=== PATIENT | male | born 1955 | race Caucasian/White ===

== ENCOUNTER 2020-06-16 17:37 | Emergency (ER) | payer BC, SELFPAY ==
--- NOTE | ~2020-06-16 | XR_ITS ---
EXAMINATION: XR wrist RT min 3V DATE: 06/16/2020 17:47 INDICATION: Radial sided right wrist pain post fall TECHNIQUE: Posteroanterior, ulnar deviation, oblique, and lateral views of the right wrist were obtai jessica. COMPARISON: none FINDINGS: Alignment is normal. No fracture. Joint spaces are normal. Soft tissue swelling over the dorsum of th e carpus IMPRESSION: 1. No osseous abnormality. Reviewed, dictated and finalized at [facility]. IMPRESSION: 1. No osseous abnormality.
--- NOTE | 2020-06-16 17:45 | ED.UPPEXIN ---
HPI - Extremity Injury (Upper) General Chief Complaint: Extremity Injury, Upper Stated Complaint: rt wrist injury Time Seen by Provider: 06/16/20 17:47 Source: patient and RN notes reviewed Mode of arrival: ambulatory Limitations: no limitations History of Present Illness HPI narrative: 64-year-old male presents with concern for right wrist injury. Reports he fell yesterday catching himself on his right hand. Reports immediate pain to the wrist. Reports dorsal swelling and tenderness. Denies elbow pain, digit pain. Reports he has been using a brace. MD complaint: injury to: right and wrist Related Data Home Medications Medication Instructions Recorded Confirmed No Home Medications 09/29/19 09/29/19 Allergies Allergy/AdvReac Type Severity Reaction Status Date / Time No Known Allergies Allergy Unknown Unverified 07/30/19 18:51 No Known Allergies Allergy Uncoded 07/30/19 18:51 Review of Systems Review of Systems: Narrative: CONSTITUTIONAL: Denies malaise, chills, sweats, or fever. CARDIOVASCULAR: Denies chest pain, palpitations RESPIRATORY: Denies dyspnea. SKIN: Reports right wrist redness MUSCULOSKELETAL: Reports right wrist pain and swelling NEUROLOGIC: Denies numbness, weakness All systems reviewed & are unremarkable except as noted in HPI and below PMFSH Past Medical History Medical History (Updated 06/16/20 @ 18:09 by Sruthi Naylor NP) Actinic keratosis 2013 Femur fracture 2016 Hypogonadism Torn meniscus 2000 Surgical History Surgical History History of medial meniscus repair of right knee 2000 Social History Social History Smoking status: Never smoker Comments At time of signature, agree with nursing past medical, surgical, social and family history. There is no relevant family history pertinent to the presenting complaint Exam Narrative: Exam Narrative: GENERAL: Well-appearing, well-nourished, and in no acute distress. HEAD: Normocephalic EYES: PERRLA, conjunctivae clear NECK: Supple. CHEST: Speaks in full sentences. No respiratory distress. HEART: Regular rate and rhythm. Normal and equal peripheral pulses. EXTREMITIES: Right wrist, hand, and digits of hand have normal strength and sensation. Dorsal wrist edema and erythema beneath the first digit of the right hand. 5/5 strength with digit flexion, extension. Range of motion normal. No clubbing, cyanosis, or edema noted. No tenderness. Skin intact. Normal digital cascade with flexion of fingers, median, ulnar and radial nerve intact. Normal sensation of each side of finger. Can perform 'okay' sign, 'cross over finger test of index and middle fingers' and 'thumbs up' sign. No scissoring. Normal thumb opposition. Good capillary refill and radial pulse. Distal capillary refill <3 seconds. SKIN: Warn, dry, intact, pink. No rash NEURO: Alert and oriented x3. PSYCH: Normal mood and affect Course Course Emergency Course: Patient is aware of diagnosis, understands and agrees to treatment plan. Anticipatory guidance given. Patient agrees to follow-up as directed and is aware of reasons to seek care at the emergency department. Portions of this record may have been created with voice recognition software Reevaluation(s) Reevaluation #1: While waiting on x-ray results, patient reports that he has a family situation and needs to leave, cannot wait for x-ray results. Explained to patient that if he has a fracture he will be unable to have a OCL applied. Patient states understanding, patient is currently wearing a supportive brace. Patient will be called with x-ray results and referred to Minda Almaguer. Date: 06/16/20 Time: 18:10 Vital Signs Vital signs: Vital Signs Temperature 97.6 F 06/16/20 17:46 Pulse Rate 61 06/16/20 17:46 Respiratory Rate 16 06/16/20 17:46 Blood Pressure 124/76 06/16/20 17:46 Pulse Oximetry 100
[2020-06-16 17:46] VITALS: BP 124/76; PULSE 61; RESP 16; TEMP 36.4; O2SAT 100
== END 2020-06-16 18:13 | disposition home or self-care (01) ==
PROVIDERS: Emergency Provider Nurse Practitioner
DX: S69.91XA Unspecified injury of right wrist, hand and finger(s), initial encounter (principal); W19.XXXA Unspecified fall, initial encounter
CPT/HCPCS: 73110; 99213; G0463

== ENCOUNTER 2021-04-26 11:10 | Emergency (ER) | payer BC, SELFPAY ==
[2021-04-26 11:17] VITALS: BP 130/63; PULSE 54; RESP 12; TEMP 36.8; O2SAT 99
--- NOTE | 2021-04-26 11:25 | ED.SKABFB ---
HPI - Skin/Abscess/Foreign Bdy General Chief complaint: Skin/Abscess/Foreign Body Stated complaint: rash Time Seen by Provider: 04/26/21 11:29 Source: patient and RN notes reviewed Mode of arrival: ambulatory Limitations: no limitations History of Present Illness HPI narrative: 65-year-old male presents to the [facility] with a rash to his genitals. Patient states that he was urinating on poison sumac the other day. Is declining running this provider see his rash. Patient states that he would like some prednisone. Has a bike ride tomorrow and would like to be able to ride. Related Data Allergies Allergy/AdvReac Type Severity Reaction Status Date / Time No Known Allergies Allergy Unknown Verified 04/26/21 12:11 No Known Allergies Allergy Other Uncoded 04/26/21 12:11 Review of Systems Review of Systems: All systems reviewed & are unremarkable except as noted in HPI and below Constitutional: Constitutional: Reports no additional constitutional complaints, Denies chills and Denies fever(s) Eyes: Eyes: Reports no additional eye complaints Cardiovascular: Cardiovascular: Reports no additional cardiovascular complaints Respiratory: Respiratory: Reports no additional respiratory complaints, Denies cough and Denies dyspnea Gastrointestinal: Gastrointestinal: Reports no additional gastrointestinal complaints Genitourinary: Genitourinary: Reports as per HPI Comments: Rash Musculoskeletal: Musculoskeletal: Reports no additional musculoskeletal complaints Integumentary/Breasts: Skin/Breast: Reports as per HPI and Reports rash Neurologic: Reports system reviewed and no additional complaints, except as documented Psychiatric: Psychiatric: Reports no additional psychiatric complaints Allergic/Immunologic: Allergic/Immunologic: Reports no additional allergic/immunologic complaints [facility] Past Medical History Medical History (Updated 04/26/21 @ 11:36 by Sruthi Ruvalcaba) Actinic keratosis 2013 Femur fracture 2016 Hypogonadism Torn meniscus 2000 Surgical History Surgical History History of medial meniscus repair of right knee 2000 Social History Social History Smoking status: Never smoker Comments At the time of my signature, I reviewed and agree with the nursing past medical, surgical, social, and family history. There is no relevant family history pertinent to the patient complaint. Exam Const: General: healthy appearing, no acute distress and alert Nutritional Appearance: well nourished Orientation/consciousness: patient oriented x3 Limitations: no limitations HENMT: Head: normal to inspection Neck: Neck: normal visual inspection Chest: Chest palpation & inspection: normal inspection of the chest Resp: Effort & Inspection: normal respiratory effort and no use of accessory muscles Auscultation: clear to auscultation bilaterally, no crackles, no rales, no rhonchi and no wheezes Cardio: Rate: regular rate Rhythm: regular rhythm Skin: General skin exam: normal color Other: 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 States my genitals and I had urinated on poison sumac. I have had it before Neuro: General: patient oriented x3, moves all extremities, no meningeal signs and no focal motor deficits Speech: normal speech Gait exam (Neuro): Normal gait present Extrem: General: normal to inspection Psych: Appearance: grossly normal and well kempt Mental Status: mental status grossly normal Affect: normal affect Thought content: Yes Normal thought content present Course Course Emergency Course: Discharge instructions reviewed with patient, as well as provided in writing per nursing staff. The instructions also include specific and strict return/GO TO THE ER as well as f/u information. All questions have been answered, and the patient deny any further questions with discharge and discharge plan.
== END 2021-04-26 11:45 | disposition home or self-care (01) ==
PROVIDERS: Emergency Provider Nurse Practitioner
DX: L25.5 Unspecified contact dermatitis due to plants, except food (principal)
CPT/HCPCS: 99213; G0463

== ENCOUNTER 2022-05-15 08:24 | Outpatient (CLI) | payer BC, SELFPAY ==
--- NOTE | ~2022-05-15 | US_ITS ---
US abdomen complete EXAMINATION: US Abdomen Complete INDICATION: Left lower quadrant abdominal pain PROCEDURE: Realtime High Resolution abdomen ultrasound. COMPARISON: No prior studies for comparison FINDINGS: Gallbladder within normal limits. No gallstones, pericholecystic fluid, gallbladder wall t hickening or biliary dilatation. Common bile duct measures 3 mm. Liver echotexture within normal limits without focal mass. Pancreas within normal limits. Pancreati c tail is obscured by bowel gas. Spleen is enlarged measuring 13.5 cm. Renal echotexture is within n ormal limits bilaterally without hydronephrosis, contour deforming mass or renal stone. Right kidney measures 12.3 cm. Left kidney measures 12 cm. Visualized aspects of the aorta and IVC are within normal limits. Portal vein is patent. No sonograph ic Youssef's sign indicated by the technologist. IMPRESSION: 1: Mild splenomegaly. Reviewed, dictated and finalized at [facility]. IMPRESSION: 1: Mild splenomegaly.
== END 2022-05-15 08:25 | disposition home or self-care (01) ==
PROVIDERS: PCP Internal Medicine; Visit Provider Nurse Practitioner
DX: R10.32 Left lower quadrant pain (principal); R10.31 Right lower quadrant pain; R16.0 Hepatomegaly, not elsewhere classified
CPT/HCPCS: 76700

== ENCOUNTER 2022-05-29 08:33 | Outpatient (CLI) | payer BC, SELFPAY ==
--- NOTE | ~2022-05-29 | CT_ITS ---
EXAMINATION: CT abdomen pelvis wo con DATE: 05/29/2022 09:03 INDICATION: Lower abdominal pain for a few weeks TECHNIQUE: Computed tomography (CT) of the abdomen and pelvis was performed without intravenous contr ast. Automated exposure control and iterative reconstruction technique were employed. Exam dose: 527 .01 mGy-cm total exam DLP. COMPARISON: 05/15/2022 complete abdominal ultrasound examination FINDINGS: The lung bases are clear. Normal heart size. No pericardial or pleural effusion. The liver, gallbladder, spleen, pancreas, and adrenal glands and kidneys are unremarkable on this harmon ited noncontrast examination. No bile duct or pancreatic duct dilatation. No urinary tract calculus or hydroureteronephrosis. There is mild prostate enlargement as well as pro state calcifications. The urinary bladder is unremarkable. The appendix was not visualized. No inflam matory changes noted in the right lower quadrant or elsewhere in the abdomen. Small fat-containing umbilical hernia. No inguinal hernia is demonstrated. No bowel obstruction, bowel wall thickening, pneumatosis or intraperitoneal free air. There is atherosclerotic calcification but normal caliber of the abdominal aorta. No intraperitoneal or retroperitoneal or pelvic mass lesion or adenopathy or ascites. Moderate degenerative disc disease at L4-5 and L5-S1. Compression screw and nail in the proximal left femur. IMPRESSION: Mild prostate enlargement and calcification Reviewed, dictated and finalized at [facility]. Reviewed, dictated and finalized at [facility].
== END 2022-05-29 08:34 | disposition home or self-care (01) ==
PROVIDERS: PCP Internal Medicine; Visit Provider Nurse Practitioner
DX: R10.32 Left lower quadrant pain (principal); R10.31 Right lower quadrant pain; M47.817 Spondylosis without myelopathy or radiculopathy, lumbosacral region; N40.0 Benign prostatic hyperplasia without lower urinary tract symptoms; K42.9 Umbilical hernia without obstruction or gangrene
CPT/HCPCS: 74176

== ENCOUNTER 2023-03-02 15:50 | Outpatient (CLI) | payer MEDICARE, OTHER, SELFPAY ==
[2023-03-02 18:41] LABS: Basophils Percent Auto 0.7 % (0.2-1.2); Eosinophils Absolute Auto 0.3 K/mm3 (0-0.3); Eosinophils Percent Auto 5.7 % (0-4.4); Hematocrit 43.3 % (42.0-52.0); Immature Granulocyte Absolute 0.02 K/mm3 (0.00-0.031); Immature Granulocyte Percent A 0.3 % (0-0.5); Lymphocytes Absolute Auto 1.78 K/mm3 (0.9-3.2); Lymphocytes Percent Auto 30.1 % (18.3-44.2); Mean Corpuscular HGB Conc 34.6 g/dl (32-36); Mean Corpuscular Hemoglobin 31.5 pg (26-34); Mean Platelet Volume 10.1 fl (7.4-10.4); Monocytes Absolute Auto 0.7 K/mm3 (0.1-0.6); Monocytes Percent Auto 11.1 % (2.6-8.5); Neutrophils Absolute Auto 3.1 K/mm3 (1.3-6.7); Neutrophils Percent Auto 52.1 % (45.5-73.1); Platelet Count Result 175 k/mm3 (150-375); Red Blood Count 4.76 M/mm3 (4.6-6.20); Red Cell Distribution Width 11.9 % (11.5-14.5); White Blood Count 5.9 K/mm3 (4.5-10.0)
[2023-03-02 18:56] LABS: Alanine Aminotransferase 25 U/L (6-50); Albumin Level 4.4 g/dL (3.5-5.1); Alkaline Phosphatase 82 U/L (38-126); Anion Gap 4 mmol/L (8-16); Aspartate Amino Transferase 45 U/L (17-59); Bilirubin,Total 0.6 mg/dL (0.2-1.3); Blood Urea Nitrogen 23 mg/dL (9-20); Calcium 9.5 mg/dL (8.4-10.2); Carbon Dioxide 29 mmol/L (22-30); Chloride 104 mmol/L (98-107); Cholesterol 183 mg/dL (0-200); Estimated Glomerular Filt Rate > 60; Glucose 102 mg/dL (65-110); HDL Direct 65 mg/dL; Potassium 4.4 mmol/L (3.4-5.0); Sodium 137 mmol/L (137-145); Triglycerides 181 mg/dL (<150)
[2023-03-02 19:07] LABS: LDL Cholesterol Direct 76 mg/dL
[2023-03-02 19:26] LABS: Prostate Specific Antigen 0.7 ng/mL (< OR = 4.0)
[2023-03-05 04:11] LABS: Prolactin 4.8 ng/mL (***)
[2023-03-06 15:50] LABS: Testosterone Free 58.2 pg/mL (35.0-155.0); Testosterone Total 425 ng/dL (250-1100)
== END 2023-03-02 15:51 | disposition home or self-care (01) ==
LOC: ANHGOSHLAB 15:53
PROVIDERS: PCP Internal Medicine; Visit Provider Internal Medicine
DX: R10.9 Unspecified abdominal pain (principal); E29.1 Testicular hypofunction; Z13.29 Encounter for screening for other suspected endocrine disorder; Z13.220 Encounter for screening for lipoid disorders; Z12.5 Encounter for screening for malignant neoplasm of prostate
CPT/HCPCS: 36415; 80053; 80061; 84146; 84153; 84402; 84403; 84443; 85025; G0103

== ENCOUNTER → 2023-04-14 08:14 | Outpatient (CLI) | payer MEDICARE, OTHER, SELFPAY ==
--- NOTE | ~2023-04-14 | CT_ITS ---
Clinical Indication: Solitary pulmonary nodule CT Scan of the Chest with Contrast: Technique: Contiguous sections were acquired throughout the chest after intravenous administration of 75 cc of Omnipaque 350. Dose reduction technique was used on this scan by utilizing automated exposu re control and iterative reconstruction technique. The dose-length product (DLP) was 364.37 mGy-cm. COMPARISON: 05/29/2022 Findings: There is no evidence of any significant mediastinal, hilar or axillary lymphadenopathy. There is no f illing defect in the pulmonary arterial tree to suggest pulmonary embolus. There is no evidence of ao rtic dissection or aneurysm. There is no evidence of pleural or pericardial effusion. Irregular nodularity in the medial right lower lobe in the infrahilar region is similar to prior exam . Mild biapical scarring noted. Images through the upper abdomen reveal no abnormalities. Impression: Small nodule in the right infrahilar region, stable since prior abdominal pelvic CT dated 05/29/2022. Reviewed, dictated and finalized at [facility]. Impression: Small nodule in the right infrahilar region, stable since prior abdominal pelvi c CT dated 05/29/2022.
[2023-04-14 08:35] LABS: Estimated Glomerular Filt Rate > 60
== END ==
PROVIDERS: PCP Internal Medicine; Visit Provider Internal Medicine
DX: R91.1 Solitary pulmonary nodule (principal)
CPT/HCPCS: 71260; Q9967

== ENCOUNTER 2023-06-18 00:49 | Day surgery (SDC) | payer MEDICARE, OTHER, SELFPAY ==
[2023-06-04 11:34] VITALS: BMI 23.9
--- NOTE | 2023-06-17 17:02 | PM.HPGS ---
History of Present Illness History of Present Illness Consent: Risks, benefits, and alternatives have been discussed and questions answered. Patient agrees to proceed with procedure. Chief complaint: neoplasm screening Narrative: Mark Woodward is a 68 year old male Referred for colon cancer screening. His last colonoscopy, 10 years ago was unremarkable. Review of Systems Review of Systems: All systems reviewed & are unremarkable except as noted in HPI and below PMFSH Past Medical History Medical History Actinic keratosis 2013 Femur fracture 2016 Hypogonadism Long-term current use of testosterone cypionate Torn meniscus 2000 Surgical History Surgical History History of appendectomy History of hip surgery ORIF femur fracture 2016 History of medial meniscus repair of right knee 2000 Partial meniscectomy Social History Social History Smoking status: Never smoker Alcohol intake: current Alcohol use details: 3-4/day Substance use: never Substance use type: does not use Lack of Transportation: YES Lack of Food: Never True Current Housing: I Have Housing Concerned About Future Housing: No Difficulty Paying Gas/Electric Bills: No Difficulty Paying for Meds: No Currently Unemployed: No Education: Decline to Answer Difficulty w/ Childcare or Family Care: No Living arrangements: with family Occupation/Education: retired Spiritual care concerns: No Meds Home Medications and Allergies Home Medications Medication Instructions Recorded Confirmed Type tadalafil 20 mg tablet 10 - 20 mg PO DAILY PRN sexual 03/02/23 06/04/23 Rx activity #30 tabs testosterone cypionate 200 mg/mL 140 mg (0.7 mL) IM WEEKLY #10 mL 03/15/23 06/04/23 Rx intramuscular oil (Depo-Testosterone) insulin syringe-needle U-100 1 mL #100 ea 06/05/23 Rx 25 x 1 (BD Insulin Syringe) safety needles 21 gauge x 1 #100 ea 06/05/23 Rx Allergies Allergy/AdvReac Type Severity Reaction Status Date / Time No Known Allergies Allergy Unknown Verified 06/18/23 06:17 Exam Const: General: alert Orientation/consciousness: patient oriented x3 Resp: Auscultation: clear to auscultation bilaterally Cardio: Rhythm: regular rhythm GI: GI Palp: Yes Soft to palpation and No Tenderness to palpation present (GI) Neuro: General: patient oriented x3 Assessment and Plan Assessment and plan (1) Colon cancer screening: Code(s): Z12.11 - Encounter for screening for malignant neoplasm of colon Status: Acute Assessment and Plan: Colonoscopy with possible biopsy or polypectomy or cautery or injection of substances.
[2023-06-18 06:19] VITALS: BP 109/73; PULSE 67; RESP 18; TEMP 36.2; O2SAT 99; BMI 22.9
[2023-06-18] MEDS: LACTATED RINGERS 1,000 ML 150 ML IV CONT ×2 (06:21→07:26)
--- NOTE | 2023-06-18 06:37 | P.PNAN_ITS ---
Anes - Initial Pre Proc Eval Procedure: Operation Date: 06/18/23 07:30 Proposed Procedures p Colonoscopy - Ramos Cullen MD Date/Time: 06/18/23 06:37 Surgeon: Ramos Cullen MD Pre Op Diagnosis: neoplasm screening Patient Data Age: 68 Gender: M Height: 1.98 m Weight: 90 kg Last Vital Signs Temp 36.2 C L 06/18/23 06:19 Pulse 67 06/18/23 06:19 Resp 18 06/18/23 06:19 BP 109/73 06/18/23 06:19 Pulse Ox 99 06/18/23 06:19 O2 Del Method Room Air 06/18/23 06:19 Allergies Allergy/AdvReac Type Severity Reaction Status Date / Time No Known Allergies Allergy Unknown Verified 06/18/23 06:17 Home Medications Medication Instructions Recorded Confirmed Type tadalafil 20 mg tablet 10 - 20 mg PO DAILY PRN sexual 03/02/23 06/04/23 Rx activity #30 tabs testosterone cypionate 200 mg/mL 140 mg (0.7 mL) IM WEEKLY #10 mL 03/15/23 06/04/23 Rx intramuscular oil (Depo-Testosterone) insulin syringe-needle U-100 1 mL #100 ea 06/05/23 Rx 25 x 1 (BD Insulin Syringe) safety needles 21 gauge x 1 #100 ea 06/05/23 Rx Patient hx anesthesia problems: none Family hx anesthesia problems: none Results Review: All pre-operative results and documents have been reviewed as part of the pre- operative evaluation. [facility] Past Medical History Medical History Actinic keratosis 2013 Femur fracture 2016 Hypogonadism Long-term current use of testosterone cypionate Torn meniscus 2000 Surgical History Surgical History History of appendectomy History of hip surgery ORIF femur fracture 2017 History of medial meniscus repair of right knee 2001 Partial meniscectomy Social History Social History Smoking status: Never smoker Alcohol intake: current Alcohol use details: 3-4/day Substance use: never Substance use type: does not use Lack of Transportation: YES Lack of Food: Never True Current Housing: I Have Housing Concerned About Future Housing: No Difficulty Paying Gas/Electric Bills: No Difficulty Paying for Meds: No Currently Unemployed: No Education: Decline to Answer Difficulty w/ Childcare or Family Care: No Living arrangements: with family Occupation/Education: retired Spiritual care concerns: No Anes - Eval Final PreProcedure Day of Procedure 06/18/23 06:37 Patient weight: normal Heart: regular rate and rhythm Lungs: clear to auscultation Airway: Mallampati scale class II Neurological: alert and oriented Last oral intake: >/= 8 hours ASA classification: II Emergent: no Anesthetic plan: proceed Anesthesia type and monitoring: general GIVS and standard monitoring Results Review: All pre-operative results and documents have been reviewed as part of the pre- operative evaluation. Informed Consent: The patient's anesthetic plan and its attendant risks and benefits were discu ssed with the patient/family/POA. Questions were solicited and answers provided to the satisfaction of the patient/family/POA.
[2023-06-18 07:46] VITALS: BP 101/65; PULSE 59; RESP 16; O2SAT 97
[2023-06-18 07:56] VITALS: BP 102/67; PULSE 54; RESP 16; O2SAT 97
[2023-06-18 08:06] VITALS: BP 103/68; PULSE 58; RESP 16; O2SAT 98
== END 2023-06-18 08:30 | disposition home or self-care (01) ==
PROVIDERS: PCP Internal Medicine; Visit Provider Internal Medicine Gastroenterology
PROC: 0DJD8ZZ Inspection of Lower Intestinal Tract, Via Natural or Artificial Opening Endoscopic (ICD-10-PCS; CPT 45378; principal; 2023-06-18 07:30)
DX: Z12.11 Encounter for screening for malignant neoplasm of colon (principal); K64.8 Other hemorrhoids; E29.1 Testicular hypofunction; Z79.890 Hormone replacement therapy
CPT/HCPCS: G0121; J2704; J7120

== ENCOUNTER 2024-07-08 09:40 | Outpatient (CLI) | payer MEDICARE, OTHER, SELFPAY ==
[2024-07-08 15:37] LABS: Basophils Percent Auto 0.6 % (0.2-1.2); Eosinophils Absolute Auto 0.1 K/mm3 (0-0.3); Eosinophils Percent Auto 1.9 % (0-4.4); Hematocrit 49.5 % (42.0-52.0); Hemoglobin 17.3 g/dL (14.0-18.0); Immature Granulocyte Absolute 0.02 K/mm3 (0.00-0.031); Immature Granulocyte Percent A 0.4 % (0-0.5); Lymphocytes Absolute Auto 1.29 K/mm3 (0.9-3.2); Lymphocytes Percent Auto 27.6 % (18.3-44.2); Mean Corpuscular HGB Conc 34.9 g/dl (32-36); Mean Corpuscular Hemoglobin 33.2 pg (26-34); Mean Platelet Volume 10.1 fl (7.4-10.4); Monocytes Absolute Auto 0.5 K/mm3 (0.1-0.6); Monocytes Percent Auto 11.1 % (2.6-8.5); Neutrophils Absolute Auto 2.7 K/mm3 (1.3-6.7); Neutrophils Percent Auto 58.4 % (45.5-73.1); Platelet Count Result 164 k/mm3 (150-375); Red Blood Count 5.21 M/mm3 (4.6-6.20); Red Cell Distribution Width 12.6 % (11.5-14.5); White Blood Count 4.7 K/mm3 (4.5-10.0)
[2024-07-08 16:06] LABS: Alanine Aminotransferase 28 U/L (6-50); Albumin Level 4.3 g/dL (3.5-5.1); Alkaline Phosphatase 55 U/L (38-126); Anion Gap 4 mmol/L (4-12); Aspartate Amino Transferase 74 U/L (17-59); Bilirubin,Total 1.4 mg/dL (0.2-1.3); Blood Urea Nitrogen 24 mg/dL (9-20); Calcium 9.2 mg/dL (8.4-10.2); Carbon Dioxide 31 mmol/L (22-30); Chloride 102 mmol/L (98-107); Estimated Glomerular Filt Rate > 60; Glucose 88 mg/dL (65-110); Potassium 4.8 mmol/L (3.4-5.0); Sodium 137 mmol/L (137-145)
[2024-07-08 16:29] LABS: Prostate Specific Antigen 0.6 ng/mL (< OR = 4.0)
[2024-07-13 18:33] LABS: Testosterone Free 19.6 pg/mL (35.0-155.0); Testosterone Total 151 ng/dL (250-1100)
== END 2024-07-08 09:41 | disposition home or self-care (01) ==
PROVIDERS: PCP Internal Medicine; Visit Provider Internal Medicine
DX: Z12.5 Encounter for screening for malignant neoplasm of prostate (principal); E29.1 Testicular hypofunction; M25.561 Pain in right knee; Z79.890 Hormone replacement therapy
CPT/HCPCS: 36415; 80053; 84153; 84402; 84403; 85025; G0103

== ENCOUNTER 2024-12-05 08:25 | Outpatient (CLI) | payer MEDICARE, OTHER, SELFPAY ==
--- OUTSIDE RECORDS SUMMARY | 2024-12-05 08:35 | XMS_ITS | Clinical Summary ---
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 Gender Identity Not on file Sexual Orientation Not on file Plan of Treatment Health Maintenance Due Date Last Done Comments Colorectal Cancer Screening Colonoscopy (10 Years) 1957 Hepatitis C 1975 DTaP, Tdap and Td Vaccines ( 1 - Tdap) 1976 Zoster Vaccines (1 of 2) 2007 Pneumococcal Vaccine: 65+ Ye ars (1 of 1 - PCV) 2022 COVID-19 Vaccine ( - 2023-2 5 season) 2024 Influenza Adult (#1) 2024 RSV Immunization or 60+ Years (1 - 1-dose 75+ series) 2032 Meningococcal B Vaccine Aged Out No l onger eligible based on patient's age to complete this topic Meningococcal Vaccine Aged Out No cristobal helen eligible based on patient's age to complete this topic RSV Immunizations Under 20 Months Aged Out No longer eligible based on patient's age to complete this topic
[2024-12-05 13:00] LABS: Basophils Percent Auto 0.6 % (0.2-1.2); Eosinophils Percent Auto 0.9 % (0-4.4); Hematocrit 46.9 % (42.0-52.0); Hemoglobin 15.9 g/dL (14.0-18.0); Immature Granulocyte Absolute 0.01 K/mm3 (0.00-0.031); Immature Granulocyte Percent A 0.2 % (0-0.5); Lymphocytes Absolute Auto 0.98 K/mm3 (0.9-3.2); Lymphocytes Percent Auto 21.1 % (18.3-44.2); Mean Corpuscular HGB Conc 33.9 g/dl (32-36); Mean Corpuscular Hemoglobin 32.9 pg (26-34); Mean Corpuscular Volume 96.9 fl (80-100); Mean Platelet Volume 10.2 fl (7.4-10.4); Monocytes Absolute Auto 0.5 K/mm3 (0.1-0.6); Monocytes Percent Auto 9.9 % (2.6-8.5); Neutrophils Absolute Auto 3.1 K/mm3 (1.3-6.7); Neutrophils Percent Auto 67.3 % (45.5-73.1); Platelet Count Result 175 k/mm3 (150-375); Red Blood Count 4.84 M/mm3 (4.6-6.20); Red Cell Distribution Width 13.2 % (11.5-14.5); White Blood Count 4.7 K/mm3 (4.5-10.0)
[2024-12-05 15:18] LABS: Alanine Aminotransferase 24 U/L (6-50); Albumin Level 4.2 g/dL (3.5-5.1); Alkaline Phosphatase 66 U/L (38-126); Anion Gap 8 mmol/L (4-12); Aspartate Amino Transferase 41 U/L (17-59); Bilirubin,Total 0.8 mg/dL (0.2-1.3); Blood Urea Nitrogen 16 mg/dL (9-20); Calcium 9.3 mg/dL (8.4-10.2); Carbon Dioxide 30 mmol/L (22-30); Chloride 103 mmol/L (98-107); Estimated Glomerular Filt Rate > 60; Glucose 84 mg/dL (65-110); Potassium 4.6 mmol/L (3.4-5.0); Sodium 141 mmol/L (137-145)
[2024-12-05 16:12] LABS: Iron 113 ug/dL (49-181)
[2024-12-05 16:21] LABS: Percent Iron Saturation 46 % (20-50)
[2024-12-05 18:04] LABS: Hepatitis C Virus Antibody Negative (Negative)
== END 2024-12-05 08:26 | disposition home or self-care (01) ==
PROVIDERS: PCP Internal Medicine; Visit Provider Internal Medicine
DX: R74.8 Abnormal levels of other serum enzymes (principal); E21.0 Primary hyperparathyroidism; E29.1 Testicular hypofunction; Z11.59 Encounter for screening for other viral diseases; Z79.890 Hormone replacement therapy
CPT/HCPCS: 36415; 80053; 82728; 83540; 83550; 84153; 84402; 84403; 85025; 86803

== ENCOUNTER 2025-06-12 13:11 | Outpatient (CLI) | payer MEDICARE, OTHER, SELFPAY ==
[2025-06-12 19:17] LABS: Hematocrit 50.2 % (42.0-52.0); Hemoglobin 17.1 g/dL (14.0-18.0); Immature Granulocyte Percent A 0.3 % (0-0.5); Lymphocytes Absolute Auto 1.37 K/mm3 (0.9-3.2); Mean Corpuscular HGB Conc 34.1 g/dl (32-36); Mean Corpuscular Hemoglobin 32.4 pg (26-34); Mean Corpuscular Volume 95.3 fl (80-100); Nucleated Red Blood Cells Absolute Auto 0.000 K/mm3 (0.0-0.012); Nucleated Red Blood Cells Perc 0.0 % (0.0-0.2); Platelet Count Result 190 k/mm3 (150-375); Red Blood Count 5.27 M/mm3 (4.6-6.20); White Blood Count 6.5 K/mm3 (4.5-10.0)
== END 2025-06-12 13:12 | disposition home or self-care (01) ==
LOC: ANHGOSHLAB 13:12
PROVIDERS: PCP Internal Medicine; Visit Provider Internal Medicine
DX: Z51.81 Encounter for therapeutic drug level monitoring (principal); Z79.890 Hormone replacement therapy
CPT/HCPCS: 36415; 85025